=== PATIENT | female | born 1990 | race Caucasian/White ===

== ENCOUNTER 2018-04-09 04:46 | Inpatient (IN) | payer BC ==
[~2018-04-09] VITALS: Ht 165.1 cm; Wt 67.3 kg
[2018-04-09] VITALS (19 sets, daily range): BP systolic 97–139; BP diastolic 59–78; PULSE 55–96; TEMP 97.2–98.8
[~2018-04-09 04:46] MED LIST: CEFTIN500 MG PO; MOTRIN 600600 MG/TAB PO; PERCOCET 325 MG1 TA2 PO; PHENERGAN 25 TA25 MG PO; PRENATAL1 TA1 PO; VICODIN 5/5001 UDTAB PO; ZYRTEC10 MG PO
[2018-04-09] MEDS ORDERED: ZANTAC 7575 MG PO (05:15)
[2018-04-09] MEDS ORDERED: ZYRTEC5 MG PO (05:15)
[2018-04-09 06:29] LABS: BASO # 0.1 (0.0-0.2); BASO % 0.7 % (0.0-2.0); EOS % 0.6 % (0-4.0); GRAN # 4.5 (1.4-6.5); GRAN % 62.9 % (42.2-75.2); HEMOGLOBIN 10.3 g/dl (12.5-16.0); LYMPH # 1.9 (1.2-3.4); MEAN CELL VOLUME 87 fl (80.0-100.0); MEAN CORPUSCULAR HEMOGLOBIN 30 pg (27.0-31.0); MEAN CORPUSCULAR HGB CONC 34 g/dl (33.0-37.0); MEAN PLATELET VOLUME 9.3 fl (7.4-10.4); MONO # 0.6 (0.1-0.6); MONO % 8.2 % (1.7-9.3); PLATELET COUNT 231 K/mm3 (130-400); RED BLOOD COUNT 3.49 M/mm3 (4.10-5.30); REDCELL DISTRIBUTION WIDTH-CV 12.6 % (11.5-14.5)
[2018-04-09 06:30] LABS: HEMATOCRIT 30.5 % (37.0-47.0)
[2018-04-10 06:57] VITALS: BP 113/76; PULSE 87; TEMP 97.6
[2018-04-10] MEDS ORDERED: IBU600 MG PO (09:45)
[2018-04-10] MEDS ORDERED: PERCOCET 325 MG1 TA2 PO (09:46)
== END 2018-04-10 14:25 | disposition home or self-care (01) | DRG 807 ==
LOC: LDRO 04:46 → LDR 05:00 → OB 09:56
PROVIDERS: Obstetrics & Gynecology
PROC: 10E0XZZ Delivery of Products of Conception, External Approach (ICD-10-PCS; principal; 2018-04-09)
DX: O48.0 Post-term pregnancy (principal); Z37.0 Single live birth; Z3A.40 40 weeks gestation of pregnancy; O69.81X0 Labor and delivery complicated by cord around neck, without compression, not applicable or unspecified
CPT/HCPCS: J2590; J2795; J7120